=== PATIENT | female | born 1985 | race Caucasian/White ===

== ENCOUNTER 2018-09-29 08:02 | Outpatient (CLI) | payer BC ==
--- NOTE | 2018-09-29 08:31 | ULT ---
EXAM: US Gallbladder RUQ CLINICAL HISTORY: Gallstone. COMPARISON: None. FINDINGS: Pancreas: Head and proximal body have a normal echotexture. The remainder the pancreas is obscured b y bowel gas Liver:Normal echotexture. No hepatic masses or intrahepatic biliary dilatation. The contour of the he patic margin is maintained. Right hepatic lobe measures 15.6 cm. Portal vein: Main portal vein is patent. Appropriate directional flow Gallbladder: No sonographic evidence of cholelithiasis, gallbladder wall thickening or pericholecysti c fluid. Rodriguez's sign:Negative Bile ducts: 0.2 cm diameter for the common bile duct Right kidney: No hydronephrosis Right kidney measuring 10.2 x 4.1 x 4.7 cm. cm in length. IMPRESSION: Unremarkable exam.
== END 2018-09-29 08:03 | disposition home or self-care (01) ==
LOC: BICULT 08:02
PROVIDERS: ATTEND Advanced Practice Midwife
DX: K80.20 Calculus of gallbladder without cholecystitis without obstruction (principal)
CPT/HCPCS: 76705

== ENCOUNTER 2019-02-18 17:01 | Inpatient (IN) | payer BC ==
[2019-02-18 17:40] VITALS: BMI 30.2
[2019-02-18 18:26] LABS: Amnisure Internal Control QC ACCEPTABLE (ACCEPTABLE); Amnisure Test RUPTURE DETECTED (No Rupture)
[2019-02-18] MEDS ORDERED: Ondansetron PF 4 MG/2 ML Vial IVP PRN (19:38)
[2019-02-18] MEDS ORDERED: Lactated Ringer's 1,000 ML IV SCH (19:38)
[2019-02-18] MEDS ORDERED: Promethazine HCl 25 MG/ML VIAL IM PRN (19:38)
[2019-02-18] MEDS ORDERED: hydrALAZINE 20 MG/ML VIAL SLOW IVP PRN (19:38)
[2019-02-18] MEDS ORDERED: NS / Oxytocin 40 units/1000ml 1,000 ML IV PRN (19:38)
[2019-02-18] MEDS ORDERED: Ibuprofen 800 MG TAB PO PRN (19:38)
[2019-02-18] MEDS ORDERED: HYDROcodone/Acetaminophen 5/325 mg Tablet PO PRN ×2 (19:38)
[2019-02-18] MEDS ORDERED: Butorphanol Tartrate 1 MG/ML VIAL SLOW IVP PRN (19:38)
[2019-02-18] MEDS ORDERED: Lidocaine 1% (PF) 30 ML VIAL SC PRN (19:38)
--- NOTE | 2019-02-18 19:47 | HP ---
TIME OF ADMISSION: 1855 hours. REASON FOR ADMISSION: A 35 weeks and 6 days gestation with spontaneous rupture of membranes. HISTORY OF PRESENT ILLNESS: Ms. Mohamud is a 33-year-old 1, para 0, with EDC of 03/19, who sees Deana Ramesh and Mary Lou Stafford at [facility]. She has had a complicated by cholelithiasis, White classification A1 diabetes with good diet control, mild preeclampsia with proteinuria, and blood pressures of 140s over 90s in the office. She reports leakage of fluid this afternoon. Upon presentation to the hospital, she was found to have a positive AmniSure. Of note, the patient reports she had an ultrasound 2 days ago at [facility], it revealed cephalic presentation with 5-1/2 pounds fetus. This ultrasound report is not available in the obstetrical record. CORPORATE OFFICER HISTORY: Blood type B positive. Antibody negative. Pap negative. Rubella immune. VDRL nonreactive. Hepatitis B, GC, chlamydia, HIV negative. Hemoglobin electrophoresis within normal limits. The patient had ASCUS Pap smear. Negative cystic fibrosis screen. Negative urine drug screen. Negative second trimester serum screening. She had an elevated 1-hour GTT of 227. Group B strep has not been done. EDC is based on 13-week ultrasound. MEDICAL HISTORY: The patient has known cholelithiasis with has not been symptomatic of recent. 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 PAST SURGICAL HISTORY: None. ALLERGIES: NONE. MEDICATIONS: vitamins. SOCIAL HISTORY: Denies tobacco, alcohol, or IV drug abuse. FAMILY HISTORY: Noncontributory. REVIEW OF SYSTEMS: Noncontributory. PHYSICAL EXAMINATION: GENERAL: Pleasant black female, in no acute distress. VITAL SIGNS: Blood pressure 138/88, 187 pounds, trace edema, pulse 85, respirations 18, temperature 98.6. HEENT: Within normal limits. LUNGS: Clear to auscultation bilaterally. HEART: Regular rhythm. ABDOMEN: Soft and nontender with a fundal height of 36. FHTs 140s. VULVA: Without lesions. VAGINA: Clear fluid. CERVIX: Fingertip 20% effaced, -4, cephalic posterior, and soft. EXTREMITIES: Without clubbing, cyanosis, or edema. monitoring reveals contractions approximately every 5 minutes, category I heart rate tracing. IMPRESSION: 1. 35 to 36 weeks gestation. 2. Premature rupture of membranes. 3. White class A1 diabetes. 4. Mild preeclampsia. 5. Cholelithiasis. 6. History of osteonecrosis of the hip. PLAN: As the patient is 35 to 36 weeks gestation, we will administer corticosteroids. The patient's osteonecrosis is not related to steroid use and so there should be no contraindication to use of corticosteroids just because of the patient's history of osteonecrosis. We will check PIH labs and will follow blood pressures. If severe range features are noted, we will administer magnesium sulfate. The patient's diabetes is diet control and no insulin use or serial blood sugars are anticipated. Because of pre-36-week rupture of membranes, we will administer penicillin for group B strep prophylaxis. We will consider discontinuation in a.m. if patient is still not in labor. If the patient progresses without being in labor approximately 12 hours after initial corticosteroid dose, may consider oral Cytotec and possibly accelerated second dose of corticosteroids. We will perform delivery for maternal or indications, but none for the delivery present at this time. Care plans discussed with Deana Ramesh, certified nurse inspector assembly. Job ID: [id number]
[2019-02-18] MEDS: Betamet Acet/Betamet Na Ph 30 MG/5 ML VIAL IM SCH (19:54)
[2019-02-18] MEDS ORDERED: Penicillin G Potassium 5 MILL.UNITS in Sodium Chloride 0.9% 100 ML IVPB SCH (20:00)
[2019-02-18 20:24] LABS: Hemoglobin 12.8 g/dL (12.0-16.0); Mean Corpuscular HGB CONC 34.5 g/dL (32.0-36.0); Mean Corpuscular Hemoglobin 29.4 pg (27.0-31.0); Mean Corpuscular Volume 85.1 fL (78.0-98.0); Platelet Count 152 thou/uL (130-400); RBC Distribution Width 13.3 % (11.5-14.5); Red Blood Cell (RBC) Count 4.36 mill/uL (4.20-5.40)
[2019-02-18 20:33] LABS: ALT (SGPT) 16 U/L (8-55); AST (SGOT) 26 U/L (5-34); Albumin 3.8 g/dL (3.5-5.0); Alkaline Phosphatase 260 U/L (40-110); Anion Gap 15 mmol/L (10-20); BUN (Urea Nitrogen) 4 mg/dL (7.0-18.7); Bilirubin, Total 0.4 mg/dL (0.2-1.2); Calc. Creatinine Clearance 169 mL/min (70-130); Calcium 9.6 mg/dL (7.8-10.44); Carbon Dioxide 19 mmol/L (22-29); Chloride 108 mmol/L (98-107); Estimated GFR-MDRD Greater than 90; Globulin 2.5 g/dL (2.4-3.5); Glucose 89 mg/dL (70-105); Potassium 4.3 mmol/L (3.5-5.1); Protein, Total 6.3 g/dL (6.0-8.3); Sodium 138 mmol/L (136-145)
[2019-02-18 20:57] LABS: Syphilis Antibody Nonreactive (Nonreactive); Syphilis Antibody Index 0.03 S/CO (<1.00 Non-Reactive)
[2019-02-18 22:35] LABS: HBSAg Index 0.17 S/CO (0-0.99); Hep B Surf Ag Non-Reactive S/CO (NonReactive)
[2019-02-18] MEDS: hydrALAZINE 20 MG/ML VIAL SLOW IVP PRN (23:32)
[2019-02-19] MEDS: Penicillin G 2.5 MILL.units 2.5 MILL.UNITS in Premix Bag 1 BAG IVPB SCH ×6 (00:18→21:06)
[2019-02-19] MEDS: Lactated Ringer's 1,000 ML IV SCH ×3 (03:15→22:32)
[2019-02-19] MEDS ORDERED: NS / Oxytocin 40 units/1000ml 1,000 ML IV PRN (07:41)
[2019-02-19] MEDS ORDERED: Lidocaine 1% (PF) 30 ML VIAL SC PRN (07:41)
--- NOTE | 2019-02-19 08:04 | PRG ---
DATE OF SERVICE: 02/19/2019 SUBJECTIVE: The patient has been resting comfortably through the night. She has had elevated blood pressures throughout. She required Apresoline x1 dose at approximately around midnight for systolic greater than 160. Since then, patient's systolics have been in the 130s. She denies headache, scotoma, or right upper quadrant pain. heart rate tracing has been category I. Contractions have been q.5 to 10 minutes and are mild at most. The patient started continued leakage of fluid. Vaginal exam is deferred this morning. Laboratory from admission includes platelet count of 152, hematocrit of 37%. Normal LFTs. The patient was noted to have an elevated protein creatinine ratio in the office. We await ultrasound report from [facility] from earlier in the week that confirmed the patient's report of 5-1/2 pound in cephalic presentation. IMPRESSION: premature rupture of the membranes, 36 weeks, mild preeclampsia with occasional severe range blood pressures without symptomatology. PLAN: Discussed with the patient care of plan. Since the patient is now 36 weeks and blood pressures have been somewhat elevated, we will accelerate second dose of corticosteroids to now. We will initiate Cytotec 50 mcg q.2 hours x4 doses and anticipate Pitocin induction of labor afterwards. We will administer magnesium sulfate if severe range pressures reappear. We will discuss care plan with Dr. Sepulveda, OB hospitalist, taking over at 8:00 am as well as Deana Ramesh, certified nurse safety officer. Job ID: [id number]
[2019-02-19] MEDS: Betamet Acet/Betamet Na Ph 30 MG/5 ML VIAL IM SCH (08:25)
[2019-02-19] MEDS: Misoprostol 100 MCG TAB PO SCH ×3 (09:15→13:24)
[2019-02-19] MEDS ORDERED: Magnesium Sulfate 20 GM/WATER 500 ML BAG IVPB SCH (15:15)
[2019-02-19] MEDS ORDERED: Magnesium Sulfate 20 gm/500 ml 20 GM/500 ML BAG ONE (15:17)
[2019-02-19] MEDS: Magnesium Sulfate 20 gm/500 ml 20 GM/500 ML BAG IVPB SCH ×2 (15:23→23:26)
[2019-02-19] MEDS: hydrALAZINE 20 MG/ML VIAL SLOW IVP PRN ×2 (16:07→21:04)
[2019-02-19] MEDS ORDERED: NS w/ Oxytocin 10 units 500 ML ONE (16:47)
[2019-02-19] MEDS ORDERED: hydrALAZINE 20 MG/ML VIAL ONE (16:47)
--- NOTE | 2019-02-19 17:09 | PDOC.LDPN ---
Labor & Delivery Progress Note - Subjective Subjective: painful contractions - Objective Abnormal vital signs: severe range pressures 168/90 General: breathing through contractions Uterine fundus: non tender Dilation: 2 Effacement: 90% Station: -1 FHT: category 1 [place] contractions every: q2-2.5 mins - Assessment (1) Preeclampsia Code(s): O14.90 - UNSPECIFIED PRE-ECLAMPSIA, UNSPECIFIED TRIMESTER Current Visit: Yes Status: Acute (2) premature rupture of membranes Code(s): O42.919 - PRETRM KRYSTINA ROM, UNSP TIME BETW RUPT AND ONST LABR, UNSP TRI Current Visit: Yes Status: Acute Plan: pitocin for augmentation (Strongly recommended epidural to help low blood pressure as well as control pain. patient declined.) -: Order for IV hydralazine [id number] for severe range BPs.
[2019-02-19] MEDS ORDERED: NS w/ Oxytocin 10 units 500 ML IV SCH (18:00)
[2019-02-20] MEDS: Penicillin G 2.5 MILL.units 2.5 MILL.UNITS in Premix Bag 1 BAG IVPB SCH ×3 (01:30→09:13)
[2019-02-20] MEDS: Misoprostol 100 MCG TAB PO SCH (05:22)
[2019-02-20] MEDS ORDERED: Fentanyl 4 mcg/Bup 0.1% Cadd 100 ML ONE (08:25)
[2019-02-20] MEDS: Lactated Ringer's 1,000 ML IV SCH (09:02)
[2019-02-20] MEDS ORDERED: ePHEDrine/0.9% NaCl/PF SYRINGE 50 mg/10 ml SLOW IVP PRN (09:14)
[2019-02-20] MEDS ORDERED: Lactated Ringer's 500 ML IV PRN (09:14)
[2019-02-20] MEDS ORDERED: Ondansetron PF 4 MG/2 ML Vial IVP PRN (09:14)
[2019-02-20] MEDS ORDERED: Acetaminophen 325 MG TAB PO PRN (09:14)
[2019-02-20] MEDS ORDERED: diphenhydrAMINE 50 MG/ML VIAL IVP PRN (09:14)
[2019-02-20] MEDS ORDERED: Naloxone HCl 0.4 mg/ml Vial IVP PRN ×2 (09:14)
[2019-02-20] MEDS ORDERED: Promethazine HCl 25 MG/ML VIAL IM PRN (09:14)
[2019-02-20] MEDS ORDERED: Fentanyl 4 mcg/Bupivacaine 0.1% Cassette 100 ML EPIDURAL SCH (09:15)
[2019-02-20] MEDS ORDERED: Communication Order-Pharmacy FS SCH (09:15)
[2019-02-20] MEDS: Magnesium Sulfate 20 gm/500 ml 20 GM/500 ML BAG IVPB SCH (09:51)
--- NOTE | 2019-02-20 10:14 | PDOC.LDPN ---
Labor & Delivery Progress Note - Subjective Subjective: comfortable - Objective Abnormal vital signs: 180/98 sever range at 0807. P111 General: resting Uterine fundus: tender to palpation Dilation: 9 Effacement: 100% Station: 0 FHT: category 1 [place] contractions every: 4 AROM: clear fluid (forebag ruptured. clear) Resuscitative measures: maternal oxygen - Assessment (1) Preeclampsia Code(s): O14.90 - UNSPECIFIED PRE-ECLAMPSIA, UNSPECIFIED TRIMESTER Current Visit: Yes Status: Acute (2) premature rupture of membranes Code(s): O42.919 - PRETRM KRYSTINA ROM, UNSP TIME BETW RUPT AND ONST LABR, UNSP TRI Current Visit: Yes Status: Acute Plan: continue plan of care, pitocin for augmentation -: I called patient at 0830 to discuss starting an epidural. Patient has severe range blood pressures and has had IV hydralizine 4 times. Discussed risks of cardiovascular events including stroke. Also discussed risks of eclampsia. Offered PCS vs. epidural at this time in order to continue with the induction. Patient agreed to an epidural.
[2019-02-20] MEDS: hydrALAZINE 20 MG/ML VIAL SLOW IVP PRN (11:18)
[2019-02-20] MEDS: Misoprostol 200 MCG TAB ONE ×2 (13:31→13:33)
--- NOTE | 2019-02-20 13:36 | PDOC.OPDEL ---
OB Operative/Delivery Note Delivery Dr/Surgeon: Jae Ramesh Pre-Delivery Diagnosis: ruptured membrane, other ( gestation Gestational diabetes Preeclampsia) Procedure/Post Delivery Dx: other (preeclampsia) Weeks gestation: 36 Anesthesia: epidural - Findings A Sex: female - 1 min: 8 - 5 min: 9 - Additional Findings/Plan Placenta delivered: spontaneous Repaired Obstetrical Laceration: 1st degree Post delivery plan: recovery in LICU
[2019-02-20 14:44] LABS: #Eosinphils 0.1 thou/uL (0.0-0.7); #Lymphocytes 1.4 thou/uL (1.20-3.40); #Neutrophils 15.2 thou/uL (1.40-6.50); %Basophils 0.1 % (0.0-1.0); %Eosinophils 0.5 % (0.0-10.0); %Monocytes 5.4 % (0.0-10.0); Hemoglobin 11.5 g/dL (12.0-16.0); Mean Corpuscular HGB CONC 33.8 g/dL (32.0-36.0); Mean Corpuscular Volume 88.7 fL (78.0-98.0); Platelet Count 141 thou/uL (130-400); RBC Distribution Width 13.5 % (11.5-14.5); Red Blood Cell (RBC) Count 3.84 mill/uL (4.20-5.40); White Blood Cell (WBC) Count 17.7 thou/uL (4.8-10.8)
[2019-02-20 15:46] LABS: ALT (SGPT) 13 U/L (8-55); AST (SGOT) 18 U/L (5-34); Albumin 3.2 g/dL (3.5-5.0); Alkaline Phosphatase 208 U/L (40-110); Anion Gap 14 mmol/L (10-20); BUN (Urea Nitrogen) 8 mg/dL (7.0-18.7); Bilirubin, Total 0.4 mg/dL (0.2-1.2); Calc. Creatinine Clearance 144 mL/min (70-130); Calcium 7.1 mg/dL (7.8-10.44); Carbon Dioxide 18 mmol/L (22-29); Chloride 105 mmol/L (98-107); Estimated GFR-MDRD Greater than 90; Globulin 2.5 g/dL (2.4-3.5); Glucose 174 mg/dL (70-105); Potassium 4.3 mmol/L (3.5-5.1); Protein, Total 5.7 g/dL (6.0-8.3); Sodium 133 mmol/L (136-145)
[2019-02-20] MEDS ORDERED: Calcium Gluconate 4.6 MEQ in Sodium Chloride 0.9% 100 ML IVPB PRN (17:01)
[2019-02-20] MEDS ORDERED: Magnesium Sulfate 20 gm/500 ml 20 GM/500 ML BAG IVPB SCH (17:01)
[2019-02-20] MEDS ORDERED: NS / Oxytocin 40 units/1000ml 1,000 ML ONE (17:25)
--- NOTE | 2019-02-21 04:45 | PDOC.PP ---
Post Progress Note Post Day #: PPD1 Subjective: Denies SCHUSTER or blurry vision. PO intake tolerated: yes Flatus: yes Ambulation: no Weight Weight 84.822 kg - Physical Examination General: NAD Respiratory: non-labored breathing Abdominal: no distention Neurological: no gross focal deficits Result Diagrams: 02/20/19 14:31 02/20/19 14:31 Additional Labs: Post Labs Blood Type B POSITIVE 02/18/19 20:26 Hep Bs Antigen Non-Reactive S/CO (NonReactive) 02/18/19 20:06 - Assessment/Plan S/p , doing well. Resolving PIH. Cont. Mg x 24 hrs delivered.
[2019-02-21] MEDS ORDERED: Lactated Ringer's 1,000 ML IV SCH (08:30)
[2019-02-21] MEDS ORDERED: HYDROcodone/Acetaminophen 5/325 mg Tablet PO PRN ×2 (12:23)
[2019-02-21] MEDS ORDERED: diphenhydrAMINE 25 MG CAP PO PRN (12:23)
[2019-02-21] MEDS ORDERED: Promethazine HCl 25 MG/ML VIAL IM PRN (12:23)
[2019-02-21] MEDS ORDERED: Milk Of Magnesia 30 ML UDCUP PO PRN (12:23)
[2019-02-21] MEDS ORDERED: hydrALAZINE 20 MG/ML VIAL SLOW IVP PRN (12:23)
[2019-02-21] MEDS ORDERED: Ondansetron PF 4 MG/2 ML Vial IVP PRN (12:23)
[2019-02-21] MEDS ORDERED: Zolpidem Tartrate 5 MG TAB PO PRN (12:23)
[2019-02-21] MEDS ORDERED: Adacel (T-DAP) 0.5 ML SYRINGE IM ONE (12:23)
[2019-02-21] MEDS ORDERED: Bisacodyl 10 MG SUPP PR PRN (12:23)
[2019-02-21] MEDS ORDERED: Lanolin Ointment 7 GM TUBE TOP PRN (12:23)
[2019-02-21] MEDS ORDERED: NIFEdipine XL 30 MG TAB PO SCH ×2 (12:30→12:55)
[2019-02-21] MEDS ORDERED: NS / Oxytocin 40 units/1000ml 1,000 ML IV SCH (12:30)
[2019-02-21] MEDS: Ibuprofen 800 MG TAB PO SCH ×2 (15:26→21:44)
[2019-02-21] MEDS: Lactated Ringer's 1,000 ML IV SCH (15:56)
[2019-02-21] MEDS: Ferrous Sulfate 325 MG TAB PO SCH (15:57)
[2019-02-21] MEDS: Penicillin G 2.5 MILL.units 2.5 MILL.UNITS in Premix Bag 1 BAG IVPB SCH (15:57)
[2019-02-21] MEDS ORDERED: Benzocaine-Menthol 82.5 ML CAN TOP PRN (21:13)
[2019-02-21] MEDS: Docusate Calcium (SURFAK) 240 MG CAP PO SCH (21:43)
[2019-02-22] MEDS: Ibuprofen 800 MG TAB PO SCH ×3 (05:25→21:37)
[2019-02-22] MEDS: Prenatal Vitamin 1 TAB PO SCH (07:59)
[2019-02-22] MEDS: Docusate Calcium (SURFAK) 240 MG CAP PO SCH ×2 (07:59→21:37)
[2019-02-22] MEDS: NIFEdipine XL 30 MG TAB PO SCH (07:59)
[2019-02-22] MEDS: Ferrous Sulfate 325 MG TAB PO SCH ×2 (09:25→14:53)
--- NOTE | 2019-02-22 22:05 | PDOC.PP ---
Post Progress Note Post Day #: 2 Subjective: Post day 2. Patient would like to stay another day PO intake tolerated: yes Flatus: yes Ambulation: yes Vital Signs (12 hours) Temp Pulse Resp BP Pulse Ox 02/22/19 19:31 99.6 F 99 16 146/73 H 97 02/22/19 18:00 98.9 F 90 12 139/83 97 02/22/19 11:32 99.1 F 104 H 20 147/84 H Weight Weight 187 lb - Physical Examination General: NAD Respiratory: non-labored breathing Abdominal: lochia (minimal) Extremities: negative homans (B) Skin: no rash Neurological: no gross focal deficits Psychiatric: A&Ox3, normal affect Result Diagrams: 02/20/19 14:31 02/20/19 14:31 Additional Labs: Post Labs Blood Type B POSITIVE 02/18/19 20:26 Hep Bs Antigen Non-Reactive S/CO (NonReactive) 02/18/19 20:06 Selected Entries 02/19/19 02/20/19 16:07 08:07 Blood Pressure 168/90 H 180/98 H Laboratory Tests 02/20/19 02/20/19 14:31 14:31 WBC 17.7 H Hgb 11.5 L Hct 34.1 L Plt Count 141 AST 18 ALT 13 (1) Preeclampsia Code(s): O14.90 - UNSPECIFIED PRE-ECLAMPSIA, UNSPECIFIED TRIMESTER Status: Acute (2) premature rupture of membranes Code(s): O42.919 - PRETRM KRYSTINA ROM, UNSP TIME BETW RUPT AND ONST LABR, UNSP TRI Status: Acute (3) (spontaneous vaginal delivery) Code(s): O80 - ENCOUNTER FOR FULL-TERM UNCOMPLICATED DELIVERY Status: Acute - Assessment/Plan A: g1 now p1 s/p complicated prior to delivery by PPROM and Preeclampsia. NML PPD2 exam with exception of mild range blood pressures, which has been reduced significantly since delivery and an elevated WBCs. liver enzymes and platelets are WNML since delivery. P: observe for s/s of infection, pt is at higher risk for endometritis due to PPROM and prolonged rupture of membranes Treat blood pressure if severe range pressures return. Evaluate for discharge home tomorrow if clinically appropriate.
[2019-02-23] MEDS: Ibuprofen 800 MG TAB PO SCH ×2 (05:20→14:17)
--- NOTE | 2019-02-23 07:49 | PDOC.PP ---
Post Progress Note Post Day #: 3 Subjective: No concerns. No pre E sx. Breast feeding. Minimal pain and lochia. PO intake tolerated: yes Flatus: yes Ambulation: yes Vital Signs (12 hours) Temp Pulse Resp BP 02/22/19 23:30 98.9 F 87 20 142/65 H Weight Weight 187 lb - Physical Examination General: NAD Cardiovascular: RRR Respiratory: non-labored breathing Abdominal: no distention, appropriately TTP Fundus firm & at: below umbilicus Extremities: negative homans (B) Neurological: no gross focal deficits Psychiatric: A&Ox3, normal affect Result Diagrams: 02/20/19 14:31 02/20/19 14:31 Additional Labs: Post Labs Blood Type B POSITIVE 02/18/19 20:26 Hep Bs Antigen Non-Reactive S/CO (NonReactive) 02/18/19 20:06 (1) (spontaneous vaginal delivery) Code(s): O80 - ENCOUNTER FOR FULL-TERM UNCOMPLICATED DELIVERY Status: Acute - Assessment/Plan PPD3 Mild BPs, otherwise VSS. BPs stale without meds. Plan for d/c home today with daily BP monitoring and f/u 1 week for BP check. Reviewed preE warning signs.
[2019-02-23 08:10] VITALS: BP 137/93; TEMP 98.6
[2019-02-23] MEDS: Docusate Calcium (SURFAK) 240 MG CAP PO SCH (09:51)
[2019-02-23] MEDS: Prenatal Vitamin 1 TAB PO SCH (09:51)
[2019-02-23] MEDS: NIFEdipine XL 30 MG TAB PO SCH (09:52)
[2019-02-23] MEDS: Ferrous Sulfate 325 MG TAB PO SCH (10:50)
== END 2019-02-23 18:30 | disposition home or self-care (01) | DRG 805 ==
LOC: L&D/OP 17:01 → L&D 20:06 → 3SW 02-21 15:40
PROVIDERS: ADMIT Obstetrics & Gynecology; ATTEND Obstetrics & Gynecology
PROC: 10E0XZZ Delivery of Products of Conception, External Approach (ICD-10-PCS; principal; 2019-02-20)
PROC: 10907ZC Drainage of Amniotic Fluid, Therapeutic from Products of Conception, Via Natural or Artificial Opening (ICD-10-PCS; 2019-02-20)
PROC: 0HQ9XZZ Repair Perineum Skin, External Approach (ICD-10-PCS; 2019-02-20)
DX: O42.113 Preterm premature rupture of membranes, onset of labor more than 24 hours following rupture, third trimester (principal); O60.14X0 Preterm labor third trimester with preterm delivery third trimester, not applicable or unspecified; Z37.0 Single live birth; Z3A.36 36 weeks gestation of pregnancy; O14.04 Mild to moderate pre-eclampsia, complicating childbirth; O99.62 Diseases of the digestive system complicating childbirth; K80.20 Calculus of gallbladder without cholecystitis without obstruction; O70.0 First degree perineal laceration during delivery; O24.420 Gestational diabetes mellitus in childbirth, diet controlled
CPT/HCPCS: 36415; 36416; 51702; 80053; 83735; 84112; 85025; 85027; 86780; 86850; 86900; 86901; 87340; 88307; 99285; J0360; J0595; J0702; J2405; J2540; J2590; J3475; J3490